=== PATIENT | male | born 1935 | race Caucasian/White ===

== ENCOUNTER 2016-12-08 14:01 | Emergency (ER) | payer OTHER ==
--- NOTE | 2016-12-08 14:10 | ER Document Report ---
ED Fall - General Mode of Arrival: Ambulatory Information source: Patient - HPI Occurred: Yesterday Where: Home Context: Lost balance, Fell from standing <DAVID NAVA - Last Filed: 12/08/16 14:20> <MICHOACANO PERKINS - Last Filed: 12/08/16 23:26> <KATARINA ECHEVARRIA - Last Filed: 12/14/16 14:57> - General Stated Complaint: FALL/ARM PAIN Notes: Patient is an 81 year old male that presents to the emergency department today with complaints of a fall that occurred yesterday afternoon. Patient states he was unable to get up off the ground. Patient states he called his daughter this afternoon and she came down from [place] to help him up. Patient states he fell because his "knees just cannot hold him up anymore". Patient states he did not hit his head. Patient only complains of a skin tear to his right upper extremity. Patient is on baby aspirin daily but denies any other blood thinners. Patient denies any dark/bloody urine or back/hip pain/neck. (DAVID NAVA) - Related data Allergies/Adverse Reactions: No Known Allergies Allergy (Unverified 12/08/16 16:31) Home Medications: Current Home Medications Amlodipine Bes/Olmesartan Med [Flores 5-20 mg Tablet] 1 tab PO QAM 12/09/16 [ History] Aspirin [Coke Aspirin] 162 mg PO QAM 12/09/16 [History] Atorvastatin Calcium [Lipitor 10 mg Tablet] 10 mg PO QAM 12/09/16 [History] Metoprolol Succinate [Toprol Xl 50 mg Tab.sr] 50 mg PO QAM 12/09/16 [History] Naproxen [Naprosyn 250 mg Tablet] 250 mg PO BIDP PRN 12/09/16 [History] Vitamin B Complex 1 tab PO QAM 12/09/16 [History] Past Medical History - General Information source: Patient, [facility], [facility] Records - Social History Smoking Status: Former Smoker Frequency of alcohol use: None Drug Abuse: None Lives with: Alone Family History: Reviewed & Not Pertinent - Past Medical History Cardiac Medical History: Reports: Hx Coronary Artery Disease, Hx Heart Attack Neurological Medical History: Reports: Hx Cerebrovascular Accident Surgical Hx: Negative <DAVID NAVA - Last Filed: 12/08/16 14:20> Review of Systems - Review of Systems Constitutional: See HPI, Other - Fall EENT: No symptoms reported Cardiovascular: No symptoms reported Respiratory: No symptoms reported Gastrointestinal: No symptoms reported Genitourinary: No symptoms reported Male Genitourinary: No symptoms reported Musculoskeletal: denies: Back pain, Joint pain, Neck pain Skin: See HPI, Other - skin tear RUE Hematologic/Lymphatic: No symptoms reported Neurological/Psychological: denies: Lost consciousness -: Yes All other systems reviewed and negative <DAVID NAVA - Last Filed: 12/08/16 14:20> Physical Exam <DAVID NAVA - Last Filed: 12/08/16 14:20> <MICHOACANO PERKINS - Last Filed: 12/08/16 23:26> <KATARINA ECHEVARRIA - Last Filed: 12/14/16 14:57> - Vital signs Vitals: Temp Pulse Resp BP Pulse Ox 98.2 F 85 16 109/73 96 12/08/16 14:30 12/08/16 14:30 12/08/16 14:30 12/08/16 14:30 12/08/16 14:30 - Notes Notes: Physical Exam: General: Alert, appears well. HEENT: Normocephalic. Atraumatic. PERRL. Extraocular movements intact. Oropharynx clear. Neck: Supple. Non-tender. Respiratory: No respiratory distress. Clear and equal breath sounds bilaterally. Cardiovascular: Regular rate and rhythm. Abdominal: Normal Inspection. Non-tender. No distension. Normal Bowel Sounds. Back: Non-tender. No deformity or step off. Extremities: Moves all four extremities. Upper extremities: Normal inspection. Normal ROM. 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 Normal ROM. Neurological: Normal cognition. AAOx4. Normal speech. Psychological: Normal affect. Normal Mood. Skin: 3cm superficial skin tear to distal right upper arm (DAVID NAVA) Course <DAVID NAVA - Last Filed: 12/08/16 14:20> - Laboratory Result Diagrams: 12/08/16 15:54 12/08/16 15:54 <MICHOACANO PERKINS - Last Filed: 12/08/16 23:26> - Laboratory Result Diagrams: 12/13/16 11:10 12/13/16 11:10 <KATARINA ECHEVARRIA - Last Filed: 12/14/16 14:57> - Re-evaluation Re-evalutation: 12/08/16 14:38 Family members are now at bedside. Daughter states she went into the patient's house for the first time today and there is "junk everywhere". Daughter states the patient wears diapers, when he changes his diapers he balls them up and throws them in the corner. Daughter states there are flies everywhere. Daughter states the patient is a hoarder and that his house is an absolute disaster. Daughter states there is no way the patient can go back to his house. Daughter states she has a [facility] in [place], where the patient' s is residing, that has a bed for him however he cannot move in until Saturday or Saturday. (DAVID NAVA) 12/08/16 18:26 Discussed at length with family who refuse to take pt to their home for weekend. They are in process of having him admitted to [facility] where pt is a resident. They have contacted [facility] and their selling underwriter and claim to have been told to go ahead and abandon him in ER. He is not safe for discharge back to his own home due to fall risk. Discussed with Staffing Rn. Advised to talk to hospitalist. Discussed with Dr. Kelsey who reviewed case but states no justifiable cause for admission. 12/08/16 21:08 12/08/16 23:26 pt will need to await cyber policy and strategy planner. He is requesting cream for his pruritic scrotum- states he uses an OTC cream at home for this. (MICHOACANO PERKINS) - Vital Signs Vital signs: Temp Pulse Resp BP Pulse Ox 98.3 F 88 18 117/71 97 12/14/16 06:42 12/14/16 06:42 12/14/16 06:42 12/14/16 06:42 12/14/16 06:42 - Laboratory Laboratory results interpreted by me: 12/08/16 12/08/16 12/08/16 15:54 15:54 15:54 RBC 3.68 L Hgb 12.3 L Hct 36.3 L MCV 99 H MCH 33.5 H Seg Neutrophils % 78.4 H Lymphocytes % 12.6 L APTT 37.8 H Chloride 108 H BUN 32 H Creatinine 1.35 H Est GFR (Non-Af Amer) 51 L Creatine Kinase Urine Protein Urine Ketones Urine Blood Ur Leukocyte Esterase 12/08/16 12/08/16 12/13/16 16:35 18:40 11:10 RBC 3.76 L Hgb 12.5 L Hct 37.5 L MCV 100 H MCH Seg Neutrophils % Lymphocytes % APTT Chloride BUN Creatinine Est GFR (Non-Af Amer) Creatine Kinase 585 H Urine Protein 30 H Urine Ketones TRACE H Urine Blood SMALL H Ur Leukocyte Esterase TRACE H 12/13/16 11:10 RBC Hgb Hct MCV MCH Seg Neutrophils % Lymphocytes % APTT Chloride BUN 24 H Creatinine 1.34 H Est GFR (Non-Af Amer) 51 L Creatine Kinase Urine Protein Urine Ketones Urine Blood Ur Leukocyte Esterase Discharge <DAVID NAVA - Last Filed: 12/08/16 14:20> <MICHOACANO PERKINS - Last Filed: 12/08/16 23:26> <KATARINA ECHEVARRIA - Last Filed: 12/14/16 14:57> - Discharge Clinical Impression: Skin tear of upper arm without complication Qualifiers: Encounter type: initial encounter Laterality: right Qualified Code(s): S41.111A - Laceration without foreign body of right upper arm, initial encounter Condition: Stable Disposition: HOME, SELF-CARE Instructions: Skin Tear ([facility]) Additional Instructions: [place] [facility] [place] [facility]. Scribe Attestation: 12/08/16 16:43 I personally performed the services described in the documentation, reviewed and edited the documentation which was dictated to the scribe in my presence, and it accurately records my words and actions. (MICHOACANO PERKINS) Scribe Documentation - Scribe Written by Alberto:: Alberto Teague, 12/08/16 1438 acting as scribe for :: Vane <DAVID NAVA - Last Filed: 12/08/16 14:20>
[2016-12-08] MEDS ORDERED: DIPH/PERTUSS(ACELL)/TETANUS VAC/PF 0.5 ML SYR (>=10YO) IM ONE (14:24)
--- NOTE | 2016-12-08 15:45 | RADIOLOGY REPORT (SQ) ---
EXAM DESCRIPTION: CT HEAD WITHOUT COMPLETED DATE/TIME: 12/08/2016 3:26 pm REASON FOR STUDY: fall COMPARISON: None. TECHNIQUE: Axial images acquired through the brain without intravenous contrast. Images reviewed wi th bone, brain and subdural windows. Images stored on PACS. All CT scanners at this facility use dose modulation, iterative reconstruction, and/or weight based d osing when appropriate to reduce radiation dose to as low as reasonably achievable (ALARA). [facility]: Dose Right [facility]: CareDose [facility]: Dose Right [facility]: Teradose 4D [facility]: zulily RADIATION DOSE: 64.61mGy. LIMITATIONS: None. FINDINGS: VENTRICLES: Prominent. CEREBRUM: No masses. No hemorrhage. No midline shift. Areas of low density in the white matter mos t likely due to chronic micro-vascular ischemic change. No evidence for acute infarction. CEREBELLUM: No masses. No hemorrhage. No alteration of density. No evidence for acute infarction. EXTRAAXIAL SPACES: Age-related involutional change. No fluid collections. No masses. ORBITS AND GLOBE: No intra- or extraconal masses. Normal contour of globe without masses. CALVARIUM: No fracture. PARANASAL SINUSES: No fluid or mucosal thickening. SOFT TISSUES: No mass or hematoma. OTHER: No other significant finding. IMPRESSION: CHRONIC CHANGES OF ATROPHY AND MICROVASCULAR ISCHEMIA. NO ACUTE PROCESS. TECHNICAL DOCUMENTATION: JOB ID: [id number] Quality ID # [id number]: Final reports with documentation of one or more dose reduction techniques (e.g., Au tomated exposure control, adjustment of the mA and/or kV according to patient size, use of iterative reconstruction technique) 2010 [employer]- All Rights Reserved
--- NOTE | 2016-12-08 16:04 | RADIOLOGY REPORT (SQ) ---
EXAM DESCRIPTION: CHEST PA/LAT COMPLETED DATE/TIME: 12/08/2016 3:38 pm REASON FOR STUDY: fall COMPARISON: August 2008 EXAM PARAMETERS: NUMBER OF VIEWS: two views TECHNIQUE: Digital Frontal and Lateral radiographic views of the chest acquired. RADIATION DOSE: NA LIMITATIONS: none FINDINGS: LUNGS AND PLEURA: No opacities, masses or pneumothorax. No pleural effusion. I cannot exc lude a component of obstructive lung disease. MEDIASTINUM AND HILAR STRUCTURES: No masses or contour abnormalities. HEART AND VASCULAR STRUCTURES: Cardiac silhouette is within normal limits for size. An ectatic thora cic aorta is identified. BONES: No acute findings. HARDWARE: None in the chest. OTHER: No other significant finding. IMPRESSION: NO SIGNIFICANT RADIOGRAPHIC FINDING IN THE CHEST. TECHNICAL DOCUMENTATION: JOB ID: [id number] [employer]- All Rights Reserved
[2016-12-08 16:08] LABS: ABSOLUTE LYMPHOCYTES (AUTO) 1.2 10^3/uL (0.5-4.7); ABSOLUTE MONOCYTES (AUTO) 0.8 10^3/uL (0.1-1.4); ABSOLUTE NEUT (AUTO) 7.5 10^3/uL (1.7-8.2); BASOPHILS % (AUTO) 0.5 % (0-2); EOSINOPHILS % (AUTO) 0.4 % (0-6); HEMATOCRIT 36.3 % (37.9-51.0); HEMOGLOBIN 12.3 g/dL (13.5-17.0); HGB HCT DIFFERENCE 0.6; LYMPHOCYTES % (AUTO) 12.6 % (13-45); MEAN CORPUSCULAR HEMOGLOBIN 33.5 pg (27.0-33.4); MEAN CORPUSCULAR HGB CONC 33.9 g/dL (32.0-36.0); MEAN CORPUSCULAR VOLUME 99 fl (80-97); MONOCYTES % (AUTO) 8.1 % (3-13); RED BLOOD COUNT 3.68 10^6/uL (4.35-5.55); RED CELL DISTRIBUTION WIDTH 13.1 % (11.5-14.0); SEGMENTED NEUTROPHILS % (AUTO) 78.4 % (42-78); WHITE BLOOD COUNT 9.6 10^3/uL (4.0-10.5)
[2016-12-08 16:18] LABS: PROTHROMBIN TIME 13.8 SEC (11.4-15.4)
[2016-12-08 16:19] LABS: PARTIAL THROMBOPLASTIN TIME 37.8 SEC (23.5-35.8)
[2016-12-08 16:28] LABS: ALANINE AMINOTRANSFERASE 29 U/L (21-72); ALBUMIN 3.7 g/dL (3.5-5.0); ALKALINE PHOSPHATASE 58 U/L (38-126); ANION GAP 10 (5-19); ASPARTATE AMINO TRANSFERASE 40 U/L (17-59); BILIRUBIN,DIRECT 0.4 mg/dL (0.0-0.4); BILIRUBIN,TOTAL 1.1 mg/dL (0.2-1.3); BLOOD UREA NITROGEN 32 mg/dL (7-20); CALCIUM 9.5 mg/dL (8.4-10.2); CARBON DIOXIDE 25 mmol/L (22-30); CHLORIDE 108 mmol/L (98-107); CREATININE RESULT 1.35 mg/dL (0.52-1.25); GLUCOSE 82 mg/dL (75-110); SODIUM 142.7 mmol/L (137-145); TOTAL PROTEIN 7.3 g/dL (6.3-8.2)
[2016-12-08 17:04] LABS: APPEARANCE,URINE SLIGHTLY-CLOUDY; BILIRUBIN,URINE NEGATIVE (NEGATIVE); GLUCOSE, URINE NEGATIVE (NEGATIVE); KETONES,URINE TRACE mg/dL (NEGATIVE); LEUKOCYTE ESTERASE,URINE TRACE (NEGATIVE); NITRITE,URINE NEGATIVE (NEGATIVE); PROTEIN,URINE 30 mg/dL (NEGATIVE); UROBILINOGEN,URINE NEGATIVE mg/dL (<2.0)
[2016-12-08 19:53] LABS: CREATINE KINASE MB 3.48 ng/mL (<4.55)
[2016-12-08 19:59] LABS: TROPONIN I 0.035 ng/mL
[2016-12-08] MEDS ORDERED: CLOTRIMAZOLE 1% CREAM 15 GM TP ONE (23:26)
--- NOTE | 2016-12-08 23:29 | EKG REPORT ---
SEVERITY:- ABNORMAL ECG - SINUS RHYTHM LEFT AXIS DEVIATION OLD ANTEROSEPTAL IL : Confirmed by: Jay Guerrero MD 08-Dec-2016 23:28:54
[2016-12-09] MEDS ORDERED: CLOTRIMAZOLE 1% CREAM 15 GM TP ONE (06:15)
[2016-12-09] MEDS ORDERED: CLOTRIMAZOLE 1% CREAM 15 GM ONE (06:40)
--- NOTE | 2016-12-09 06:59 | ER Document Report ---
Doctor's Note Notes: 12/09/16 06:58 Evaluate the patient this morning. He is doing well. He denies any complaints at this time. He did take his own home meds this morning. I will make sure there is no order and allow him to take his medications as they are prescribed. I informed patient that if he has any problems or issues to let us know right away so that we can help him. Patient is very pleasant and thankful. Patient will be continued to be monitored and cared for until he transferred to a prison. 12/09/16 06:58 Dictation of this chart was performed using voice recognition software; therefore, there may be some unintended grammatical errors.
[2016-12-09] MEDS ORDERED: NAPROXEN 250 MG TABLET PO PRN (10:15)
[2016-12-09] MEDS ORDERED: Vitamin B Complex [Vitamin B Complex] PO ONE (14:00)
[2016-12-09] MEDS ORDERED: ASPIRIN 81 MG TABLET, CHEWABLE PO ONE (14:00)
[2016-12-09] MEDS ORDERED: METOPROLOL SUCCINATE 50 MG TAB.SR.24H PO ONE (14:00)
[2016-12-09] MEDS: ATORVASTATIN CALCIUM 10 MG TABLET PO SCH (22:20)
[2016-12-10] MEDS ORDERED: OLMESARTAN MED PO SCH (08:00)
[2016-12-10] MEDS ORDERED: (PENDING PHARMACY ID) (Vitamin B Complex [Vitamin B Complex] 1 TAB) PO SCH (08:00)
[2016-12-10] MEDS ORDERED: AMLODIPINE BES PO SCH (08:00)
[2016-12-10] MEDS: ASPIRIN 81 MG TABLET, CHEWABLE PO SCH (09:07)
[2016-12-10] MEDS: Vitamin B Complex [Vitamin B Complex] PO SCH (09:07)
[2016-12-10] MEDS: METOPROLOL SUCCINATE 50 MG TAB.SR.24H PO SCH (09:07)
[2016-12-10] MEDS: OLMESARTAN MED PO SCH (10:10)
[2016-12-10] MEDS: AMLODIPINE BES PO SCH (10:10)
[2016-12-10] MEDS: ATORVASTATIN CALCIUM 10 MG TABLET PO SCH (22:37)
[2016-12-11] MEDS: Vitamin B Complex [Vitamin B Complex] PO SCH (09:15)
[2016-12-11] MEDS: AMLODIPINE BES PO SCH (09:20)
[2016-12-11] MEDS: OLMESARTAN MED PO SCH (09:20)
[2016-12-11] MEDS: METOPROLOL SUCCINATE 50 MG TAB.SR.24H PO SCH (09:21)
[2016-12-11] MEDS: ASPIRIN 81 MG TABLET, CHEWABLE PO SCH (09:22)
[2016-12-12] MEDS: ATORVASTATIN CALCIUM 10 MG TABLET PO SCH ×2 (03:14→23:24)
[2016-12-12] MEDS: METOPROLOL SUCCINATE 50 MG TAB.SR.24H PO SCH (08:26)
[2016-12-12] MEDS: Vitamin B Complex [Vitamin B Complex] PO SCH (08:26)
[2016-12-12] MEDS: ASPIRIN 81 MG TABLET, CHEWABLE PO SCH (08:26)
[2016-12-12] MEDS: OLMESARTAN MED PO SCH (11:50)
[2016-12-12] MEDS: AMLODIPINE BES PO SCH (11:50)
[2016-12-12] MEDS ORDERED: TUBERCULIN,PURIF.PROT.DERIV. 5 TU/0.1 ML TEST 1 ML VIAL ID ONE (12:01)
--- NOTE | 2016-12-13 05:29 | ER Document Report ---
Doctor's Note Notes: 12/13/16 05:28 Patient evaluated this morning. Patient had no overnight complaints vital signs remained to be stable. Patient alert and oriented voices no complaints at this time still waiting for placement
[2016-12-13] MEDS: METOPROLOL SUCCINATE 50 MG TAB.SR.24H PO SCH (08:29)
[2016-12-13] MEDS: ASPIRIN 81 MG TABLET, CHEWABLE PO SCH (08:29)
[2016-12-13] MEDS: AMLODIPINE BES PO SCH (08:30)
[2016-12-13] MEDS: OLMESARTAN MED PO SCH (08:30)
[2016-12-13] MEDS: Vitamin B Complex [Vitamin B Complex] PO SCH (08:30)
[2016-12-13 11:26] LABS: ABSOLUTE BASOPHILS # (AUTO) 0.1 10^3/uL (0.0-0.2); ABSOLUTE EOSINOPHILS # (AUTO) 0.3 10^3/uL (0.0-0.6); ABSOLUTE LYMPHOCYTES (AUTO) 1.7 10^3/uL (0.5-4.7); ABSOLUTE MONOCYTES (AUTO) 0.8 10^3/uL (0.1-1.4); ABSOLUTE NEUT (AUTO) 6.6 10^3/uL (1.7-8.2); BASOPHILS % (AUTO) 0.6 % (0-2); HEMATOCRIT 37.5 % (37.9-51.0); HEMOGLOBIN 12.5 g/dL (13.5-17.0); LYMPHOCYTES % (AUTO) 17.8 % (13-45); MEAN CORPUSCULAR HEMOGLOBIN 33.3 pg (27.0-33.4); MEAN CORPUSCULAR HGB CONC 33.4 g/dL (32.0-36.0); MEAN CORPUSCULAR VOLUME 100 fl (80-97); MONOCYTES % (AUTO) 8.6 % (3-13); RED BLOOD COUNT 3.76 10^6/uL (4.35-5.55); RED CELL DISTRIBUTION WIDTH 13.3 % (11.5-14.0); WHITE BLOOD COUNT 9.4 10^3/uL (4.0-10.5)
[2016-12-13 11:46] LABS: ALANINE AMINOTRANSFERASE 37 U/L (21-72); ALBUMIN 3.7 g/dL (3.5-5.0); ALKALINE PHOSPHATASE 61 U/L (38-126); ANION GAP 9 (5-19); ASPARTATE AMINO TRANSFERASE 36 U/L (17-59); BILIRUBIN,DIRECT 0.2 mg/dL (0.0-0.4); BILIRUBIN,TOTAL 0.9 mg/dL (0.2-1.3); BLOOD UREA NITROGEN 24 mg/dL (7-20); CALCIUM 9.6 mg/dL (8.4-10.2); CARBON DIOXIDE 28 mmol/L (22-30); CHLORIDE 104 mmol/L (98-107); CREATINE KINASE 83 U/L (55-170); CREATININE RESULT 1.34 mg/dL (0.52-1.25); GLUCOSE 90 mg/dL (75-110); MAGNESIUM 2.1 mg/dL (1.6-2.3); POTASSIUM 4.7 mmol/L (3.6-5.0); SODIUM 141.4 mmol/L (137-145); TOTAL PROTEIN 7.6 g/dL (6.3-8.2)
[2016-12-13 11:57] LABS: APPEARANCE,URINE CLEAR; BILIRUBIN,URINE NEGATIVE (NEGATIVE); GLUCOSE, URINE NEGATIVE (NEGATIVE); KETONES,URINE NEGATIVE (NEGATIVE); LEUKOCYTE ESTERASE,URINE NEGATIVE (NEGATIVE); NITRITE,URINE NEGATIVE (NEGATIVE); PROTEIN,URINE NEGATIVE (NEGATIVE); URINE SPECIFIC GRAVITY 1.011; UROBILINOGEN,URINE NEGATIVE mg/dL (<2.0)
[2016-12-13 11:57] LABS: CREATINE KINASE MB 0.89 ng/mL (<4.55)
[2016-12-13 11:58] LABS: TROPONIN I < 0.012 ng/mL
--- NOTE | 2016-12-13 15:27 | ER Document Report ---
Doctor's Note Notes: 12/13/16 15:25 The patient's lab work was repeated and is normal. I visited with the patient he is doing well. The daughter is supposed to pick him up tomorrow afternoon to take him to an assisted care facility in [place] tomorrow. Filled out the FL2 form to facilitate this. His PPD can be read tomorrow afternoon and then he can go to the long-term care facility.
[2016-12-13] MEDS: ATORVASTATIN CALCIUM 10 MG TABLET PO SCH (22:59)
[2016-12-14] MEDS: METOPROLOL SUCCINATE 50 MG TAB.SR.24H PO SCH (09:24)
[2016-12-14] MEDS: ASPIRIN 81 MG TABLET, CHEWABLE PO SCH (09:24)
[2016-12-14 15:13] VITALS: BP 120/70
== END 2016-12-14 15:12 | disposition home or self-care (01) ==
LOC: ER 14:01
DX: S41.111A Laceration without foreign body of right upper arm, initial encounter (principal); L29.1 Pruritus scroti; M17.0 Bilateral primary osteoarthritis of knee; W18.30XA Fall on same level, unspecified, initial encounter; Y92.009 Unspecified place in unspecified non-institutional (private) residence as the place of occurrence of the external cause; I25.10 Atherosclerotic heart disease of native coronary artery without angina pectoris; I25.2 Old myocardial infarction; Z79.82 Long term (current) use of aspirin; Z86.73 Personal history of transient ischemic attack (TIA), and cerebral infarction without residual deficits; Z87.891 Personal history of nicotine dependence
CPT/HCPCS: 93005; 99285; 96372; 90471; 36415; 82553; 82550; 83735; 84443; 85025; 85610; 85730; 80053; 81001; 84484; 71020; 70450; 90715; 93010; J3490 ×3